=== PATIENT | female | born 1935 | race Caucasian/White ===

== ENCOUNTER → 2017-03-13 | Outpatient (CLI) | payer MEDICARE | LOC: MHCPAIN 08:25 | DX: G89.29 Other chronic pain (principal); M47.817 Spondylosis without myelopathy or radiculopathy, lumbosacral region; M53.3 Sacrococcygeal disorders, not elsewhere classified; M96.1 Postlaminectomy syndrome, not elsewhere classified | CPT/HCPCS: G0463 ==

== ENCOUNTER → 2017-05-21 | Outpatient (REF) ==
[2017-05-21 19:13] LABS: C-REACTIVE PROTEIN < 0.5 mg/dL (0.0-0.9)
[2017-05-21 19:37] LABS: THYROID STIMULATING HORMONE 0.027 uIU/mL (0.465-4.680)
== END ==
LOC: ZLAB.WCH 18:27
PROVIDERS: Internal Medicine
DX: Z01.89 Encounter for other specified special examinations (principal)

== ENCOUNTER → 2017-06-18 | Outpatient (CLI) | payer MEDICARE | LOC: COL.RAD 10:59 | DX: E05.20 Thyrotoxicosis with toxic multinodular goiter without thyrotoxic crisis or storm (principal) | CPT/HCPCS: A9516 ==

== ENCOUNTER → 2017-07-02 | Outpatient (CLI) | payer MEDICARE | LOC: COL.RAD 12:19 | DX: E05.20 Thyrotoxicosis with toxic multinodular goiter without thyrotoxic crisis or storm (principal) | CPT/HCPCS: A9517 ==

== ENCOUNTER → 2017-07-18 | Outpatient (REF) ==
[2017-07-18 18:57] LABS: THYROID STIMULATING HORMONE < 0.015 uIU/mL (0.465-4.680)
== END ==
LOC: ZLAB.WCH 18:02
PROVIDERS: Internal Medicine
DX: Z01.89 Encounter for other specified special examinations (principal)

== ENCOUNTER → 2017-08-14 | Outpatient (REF) ==
[2017-08-14 20:06] LABS: THYROID STIMULATING HORMONE < 0.015 uIU/mL (0.465-4.680)
== END ==
LOC: ZLAB.WCH 18:57
PROVIDERS: Internal Medicine
DX: Z01.89 Encounter for other specified special examinations (principal)

== ENCOUNTER → 2017-09-12 | Outpatient (REF) ==
[2017-09-12 19:19] LABS: THYROID STIMULATING HORMONE < 0.015 uIU/mL (0.465-4.680)
== END ==
LOC: ZLAB.WCH 18:13
PROVIDERS: Internal Medicine
DX: Z01.89 Encounter for other specified special examinations (principal)

== ENCOUNTER → 2017-10-11 | Outpatient (REF) ==
[2017-10-11 22:50] LABS: THYROID STIMULATING HORMONE 1.13 uIU/mL (0.465-4.680)
== END ==
LOC: ZLAB.WCH 19:15
PROVIDERS: Internal Medicine
DX: Z01.89 Encounter for other specified special examinations (principal)

== ENCOUNTER → 2017-11-12 | Outpatient (REF) ==
[2017-11-12 19:12] LABS: THYROID STIMULATING HORMONE 0.976 uIU/mL (0.465-4.680)
== END ==
LOC: ZLAB.WCH 18:06
PROVIDERS: Internal Medicine
DX: Z01.89 Encounter for other specified special examinations (principal)

== ENCOUNTER → 2017-12-11 | Outpatient (REF) ==
[2017-12-11 20:01] LABS: THYROID STIMULATING HORMONE 0.611 uIU/mL (0.465-4.680)
== END ==
LOC: ZLAB.WCH 18:56
PROVIDERS: Internal Medicine
DX: Z01.89 Encounter for other specified special examinations (principal)

== ENCOUNTER → 2018-01-06 | Outpatient (REF) ==
[2018-01-06 19:22] LABS: THYROID STIMULATING HORMONE 0.691 uIU/mL (0.465-4.680)
== END ==
LOC: ZLAB.WCH 17:54
PROVIDERS: Internal Medicine
DX: Z01.89 Encounter for other specified special examinations (principal)

== ENCOUNTER → 2018-02-05 | Outpatient (REF) ==
[2018-02-05 16:27] LABS: THYROID STIMULATING HORMONE 1.26 uIU/mL (0.465-4.680)
== END ==
LOC: ZLAB.WCH 15:40
PROVIDERS: Internal Medicine
DX: Z01.89 Encounter for other specified special examinations (principal)

== ENCOUNTER → 2018-02-22 | Outpatient (REF) ==
[2018-02-22 12:46] LABS: THYROID STIMULATING HORMONE 0.237 uIU/mL (0.465-4.680)
== END ==
LOC: ZLAB.WCH 11:35
PROVIDERS: Internal Medicine
DX: Z01.89 Encounter for other specified special examinations (principal)

== ENCOUNTER → 2018-04-07 | Outpatient (REF) ==
[2018-04-07 15:23] LABS: THYROID STIMULATING HORMONE 1.82 uIU/mL (0.465-4.680)
== END ==
LOC: ZLAB.WCH 14:35
PROVIDERS: Internal Medicine
DX: Z01.89 Encounter for other specified special examinations (principal)

== ENCOUNTER → 2018-05-07 | Outpatient (REF) ==
[2018-05-07 16:58] LABS: THYROID STIMULATING HORMONE 0.405 uIU/mL (0.465-4.680)
== END ==
LOC: ZLAB.WCH 15:58
PROVIDERS: Internal Medicine
DX: Z01.89 Encounter for other specified special examinations (principal)

== ENCOUNTER → 2018-08-02 | Outpatient (REF) ==
[2018-08-02 15:24] LABS: THYROID STIMULATING HORMONE 0.652 uIU/mL (0.465-4.680)
== END ==
LOC: ZLAB.WCH 14:06
PROVIDERS: Internal Medicine
DX: Z01.89 Encounter for other specified special examinations (principal)

== ENCOUNTER → 2018-09-02 | Outpatient (REF) ==
[2018-09-02 19:07] LABS: THYROID STIMULATING HORMONE 1.38 uIU/mL (0.465-4.680)
== END ==
LOC: ZLAB.WCH 18:27
PROVIDERS: Internal Medicine
DX: Z01.89 Encounter for other specified special examinations (principal)

== ENCOUNTER → 2018-09-22 | Outpatient (REF) ==
[2018-09-22 19:18] LABS: THYROID STIMULATING HORMONE 2.74 uIU/mL (0.465-4.680)
== END ==
LOC: ZLAB.WCH 18:30
PROVIDERS: Internal Medicine
DX: Z01.89 Encounter for other specified special examinations (principal)

== ENCOUNTER → 2018-10-27 | Outpatient (REF) ==
[2018-10-27 17:13] LABS: THYROID STIMULATING HORMONE 0.53 uIU/mL (0.465-4.680)
== END ==
LOC: ZLAB.WCH 16:27
PROVIDERS: Internal Medicine
DX: Z01.89 Encounter for other specified special examinations (principal)

== ENCOUNTER → 2018-12-15 | Outpatient (REF) ==
[2018-12-15 17:01] LABS: THYROID STIMULATING HORMONE 0.86 uIU/mL (0.465-4.680)
== END ==
LOC: ZLAB.WCH 16:16
PROVIDERS: Internal Medicine
DX: Z01.89 Encounter for other specified special examinations (principal)

== ENCOUNTER → 2019-01-19 | Outpatient (REF) ==
[2019-01-19 17:15] LABS: THYROID STIMULATING HORMONE 1.39 uIU/mL (0.465-4.680)
== END ==
LOC: ZLAB.WCH 15:59
PROVIDERS: Internal Medicine
DX: Z01.89 Encounter for other specified special examinations (principal)

== ENCOUNTER → 2019-02-20 | Outpatient (REF) ==
[2019-02-20 15:39] LABS: THYROID STIMULATING HORMONE 1.64 uIU/mL (0.465-4.680)
== END ==
LOC: ZLAB.WCH 14:49
PROVIDERS: Internal Medicine
DX: Z01.89 Encounter for other specified special examinations (principal)

== ENCOUNTER 2020-11-27 22:20 | Emergency (ER) | payer MEDICARE ==
[~2020-11-27] VITALS: Ht 172.7 cm; Wt 65.5 kg
[~2020-11-27 22:20] MED LIST: AMOXICILLIN875 MG; CEPHALEXIN500 M1 PO; CYANOCOBAL1000 MCG/1 IM; DILAUDID8 M1 PO; LAMICTAL 25MG T25 MG PO; MELATONIN3 M1 PO; MIRALAX PA17 GM/Dose PO; NEURONTIN600 MG/TAB PO; SYNTHROID 0.0.025 MG PO; ULTRAM 50MG TAB50 MG PO; XANAX 1MG1 MG PO
[2020-11-27 22:24] VITALS: TEMP 97.8
[2020-11-27 22:54] LABS: BASO % 0.4 % (0.0-2.0); EOS # 0.1 (0.0-0.7); EOS % 1.3 % (0-4.0); GRAN # 5.4 (1.4-6.5); GRAN % 68.9 % (42.2-75.2); HEMATOCRIT 39.6 % (37.0-47.0); HEMOGLOBIN 12.4 g/dl (12.5-16.0); LYMPH # 1.4 (1.2-3.4); MEAN CELL VOLUME 89 fl (80.0-100.0); MEAN CORPUSCULAR HEMOGLOBIN 28 pg (27.0-31.0); MEAN CORPUSCULAR HGB CONC 31 g/dl (33.0-37.0); MEAN PLATELET VOLUME 9.8 fl (7.4-10.4); MONO # 0.9 (0.1-0.6); PLATELET COUNT 301 K/mm3 (130-400); RED BLOOD COUNT 4.44 M/mm3 (4.10-5.30); REDCELL DISTRIBUTION WIDTH-CV 15.8 % (11.5-14.5)
[2020-11-27 23:10] LABS: ALBUMIN 4.1 gm/dL (3.5-5.0); BILIRUBIN,TOTAL 0.4 mg/dL (0.0-1.0); CALCIUM 9.9 mg/dL (8.4-10.2); CREATININE, serum 1.24 (0.52-1.25); POTASSIUM 4.4 mmol/L (3.4-5.0); TOTAL PROTEIN 7.3 gm/dL (6.4-8.2)
[2020-11-27 23:11] LABS: C-REACTIVE PROTEIN 0.5 mg/dL (0.0-0.9)
[2020-11-28] MEDS ORDERED: ULTRAM 50MG TAB50 MG PO (00:11)
[2020-11-28 00:40] VITALS: BP 138/70; PULSE 80
== END 2020-11-28 00:40 | disposition home or self-care (01) ==
LOC: COL.ER 22:20
PROVIDERS: Emergency Medicine
DX: S20.219A Contusion of unspecified front wall of thorax, initial encounter (principal); E03.9 Hypothyroidism, unspecified; G89.29 Other chronic pain; Z88.6 Allergy status to analgesic agent; Z87.891 Personal history of nicotine dependence; Z88.8 Allergy status to other drugs, medicaments and biological substances; Z79.890 Hormone replacement therapy; W19.XXXA Unspecified fall, initial encounter
CPT/HCPCS: A9284; J3010; Q9967

== ENCOUNTER 2021-04-09 03:25 | Inpatient (IN) | payer MEDICARE ==
[~2021-04-09] VITALS: Ht 165.2 cm; Wt 70.8 kg
[~2021-04-09 03:25] MED LIST changes: -SYNTHROID 0.0.025 MG PO; +SYNTHROID0.05 MG/TA PO
[2021-04-09 05:29] LABS: BASO % 0.3 % (0.0-2.0); EOS % 0.1 % (0-4.0); GRAN % 79.3 % (42.2-75.2); HEMATOCRIT 37.7 % (37.0-47.0); HEMOGLOBIN 12.2 g/dl (12.5-16.0); LYMPH # 0.9 (1.2-3.4); LYMPH % 11.4 % (20.0-51.0); MEAN CELL VOLUME 90 fl (80.0-100.0); MEAN CORPUSCULAR HEMOGLOBIN 29 pg (27.0-31.0); MEAN CORPUSCULAR HGB CONC 32 g/dl (33.0-37.0); MONO # 0.6 (0.1-0.6); MONO % 8.5 % (1.7-9.3); PLATELET COUNT 229 K/mm3 (130-400); RED BLOOD COUNT 4.18 M/mm3 (4.10-5.30)
[2021-04-09 05:36] LABS: PROTHROMBIN TIME 10.9 SECONDS (9.7-12.8)
[2021-04-09 05:40] LABS: ALBUMIN 4.2 gm/dL (3.5-5.0); BILIRUBIN,TOTAL 0.8 mg/dL (0.0-1.0); C-REACTIVE PROTEIN 2.7 mg/dL (0.0-0.9); CALCIUM 9.9 mg/dL (8.4-10.2); CREATININE, serum 1.01 (0.52-1.25); POTASSIUM 5.1 mmol/L (3.4-5.0); TOTAL PROTEIN 7.7 gm/dL (6.4-8.2)
[2021-04-09 06:03] LABS: TROPONIN-I 0.102 ng/mL (0.000-0.035)
[2021-04-09 06:51] LABS: COLLECTION METHOD CATHETER
[2021-04-09 06:56] LABS: PH 6 (5-8); SQUAMOUS EPITHELIAL None Seen /hpf; URINE APPEARANCE Clear; URINE BACTERIA None Seen /hpf; URINE BILIRUBIN Negative (NEGATIVE); URINE BLOOD Negative (NEGATIVE); URINE COLOR Yellow; URINE GLUCOSE Negative (NEGATIVE); URINE KETONE Trace (NEGATIVE); URINE LEUKOCYTE ESTERASE Negative (NEGATIVE); URINE NITRATE Negative (NEGATIVE); URINE PROTEIN(semi-quant) 1+ (NEGATIVE); URINE RBC 0-2 /hpf; URINE UROBILINOGEN Negative (NEGATIVE)
[2021-04-09 11:22] VITALS: BP 164/66; PULSE 81; TEMP 98.2
--- NOTE | 2021-04-09 12:30 | NUR ---
Pt arrived to medical unit room 355 around 1130 from ED. Oriented pt to room. IV started to right upper arm. Admission assessments completed. Pt unable to provide current med list, updated list obtained from [facility] and confirmed by pt's daughter. Pt denies needs at this time. Continuing to monitor.
[2021-04-09] MEDS ORDERED: LEXAPRO 10MG10 MG PO (13:05)
[2021-04-09] MEDS ORDERED: DILAUDID 4MG TAB4 MG PO (13:06)
[2021-04-09] MEDS ORDERED: INDERAL 20MG20 MG PO (13:11)
[2021-04-09] MEDS ORDERED: VITAMIN D2 PO (13:14)
--- NOTE | 2021-04-09 16:00 | NUR ---
Pt reporting bladder cramping and inability to urinate. Bladder scan done w/>500 mls found. notified and straight cath ordered. Attempted straight cath w/no output. Immediately following insertion, pt began urinating in bed. After sheets changed, purewick placed and pt able to urinate more. Reports relief of cramping following this.
[2021-04-09 16:52] VITALS: BP 155/73; PULSE 73; TEMP 98
--- NOTE | 2021-04-09 17:30 | NUR ---
Pt reported increase in bladder cramping again. Bladder scan done and >500 mls found again. Reattempted straight cath w/650 mls out clear jami urine. Continuing to monitor.
--- NOTE | 2021-04-09 20:00 | NUR ---
Assessment complete. Patient is alert and oriented with no complaints of pain. No edema is noted. Bilateral lower extremities have various bruises and skin tears from falls at home. Dressings are changed. Lungs are clear in upper lobes with fine crackles in the bases. Patient is tolerating breathing on RA well. Purewick is draining dark yellow urine. Comfort measures provided and call light in reach.
[2021-04-09 21:14] VITALS: BP 115/49; PULSE 66; TEMP 98.1
[2021-04-10] VITALS (10 sets, daily range): BP systolic 120–149; BP diastolic 51–75; PULSE 60–97; TEMP 97.4–98.1
[2021-04-10 07:04] LABS: BASO % 0.5 % (0.0-2.0); EOS # 0.2 (0.0-0.7); EOS % 2.8 % (0-4.0); GRAN # 3.4 (1.4-6.5); GRAN % 55.7 % (42.2-75.2); HEMOGLOBIN 10.7 g/dl (12.5-16.0); LYMPH # 1.7 (1.2-3.4); LYMPH % 27.9 % (20.0-51.0); MEAN CELL VOLUME 91 fl (80.0-100.0); MEAN CORPUSCULAR HEMOGLOBIN 30 pg (27.0-31.0); MEAN CORPUSCULAR HGB CONC 33 g/dl (33.0-37.0); MEAN PLATELET VOLUME 10.5 fl (7.4-10.4); MONO # 0.8 (0.1-0.6); MONO % 12.6 % (1.7-9.3); PLATELET COUNT 228 K/mm3 (130-400); RED BLOOD COUNT 3.63 M/mm3 (4.10-5.30); REDCELL DISTRIBUTION WIDTH-CV 13.3 % (11.5-14.5)
[2021-04-10 07:05] LABS: HEMATOCRIT 32.9 % (37.0-47.0)
[2021-04-10 07:11] LABS: CREATININE, serum 1.26 (0.52-1.25); POTASSIUM 4.1 mmol/L (3.4-5.0)
[2021-04-10 07:24] LABS: TROPONIN-I 0.044 ng/mL (0.000-0.035)
--- NOTE | 2021-04-10 09:50 | NUR ---
Shift assessment complete. Resting in bed w/eyes closed, rouses easily to verbal stimulation. NPO since midnight for Marianoiscan today. INT to right upper arm w/o s/s complication, flushes well. A&Ox4. Heart RRR. Lungs CTA. Reports pain well-controlled at this time and declines pain medication. Continuing to monitor.
--- NOTE | 2021-04-10 10:50 | NUR ---
Pt off unit for lexiscan at this time.
--- NOTE | 2021-04-10 15:51 | NUR ---
Customer Service Attendant met with patient to discuss discharge planning. Patient lives alone in [place] and sees Dr. uDke for primary care. Patient obtains medications from [facility] on [address] with no difficulties. Patient reports she has a walker, cane, electric wheelchair, and electric scooter at home. Patient states she "does alright" with ADLS. SW adressed patient's falls at home and she states she hasn't been falling often and when she does it's due to a balance issue that she's had since she's been a child. Patient states she also has issues with her foot arch, which also contributes to the issue. Patient reports she has [facility] at home. SW reviewed PT recommendation for SNF and patient states she is not interested in rehab at this time. Patient advised she plans to return home with continued services from [facility]. SW also asked patient about Advance Directives. Patient states she has never completed DPOA-HC but would like to complete it while here. SW assisted patient in completing the form and patient verbalized understanding of DPOA-HC. Patient states she wants to designate her daughter, Medina and no one else. BOY and BOY Cuenca provided witness signature. BOY provided original and copies to patient then placed copy in patient's chart. BOY then contacted patient's daughter, Medina to review discharge plan. Medina feels that patient would benefit from placement, however has promised patient that she would not force her. Medina advised she tried to talk with patient, however patient is insistant on going to a follow up appointment with a specialist in [place] on Saturday and returning home. Medina advised she has been interested in Assisted Living for patient. BOY advised Medina that this is something typically not covered by insurance. Medina inquired if patient would qualify for Medicaid so BOY consulted Seda, Financial Counselor. BOY explained to Medina that in order to qualify for SNF placement, patient would require three inpatient midnights and Medina verbalized understanding. BOY advised Medina that if patient would not agree to SNF placement, the plan is home with [facility]. BOY contacted Zara at [facility] and faxed clinical updates. Discharge Plan: Patient declined SNF placement, which is the recommendation. Plan will be Home with [facility].
--- NOTE | 2021-04-10 21:45 | NUR ---
Initial shift assessment done- has been resting the first part of the shift, states back pain 04/06--will give Dilaudid p.o as ordered at this time, Up to bathroom with assist and walker-only needs standby assist. Very pleasant, alert and oriented at this time. Tele on. Iv fluids of NS at 75cc/hr- just this one liter ordered. bed alarm on.
[2021-04-11 00:55] VITALS: BP 127/44; PULSE 70; TEMP 97.9
[2021-04-11 03:59] VITALS: BP 109/55; PULSE 59; TEMP 97.7
[2021-04-11 06:39] LABS: BASO % 0.5 % (0.0-2.0); EOS # 0.3 (0.0-0.7); GRAN # 3.2 (1.4-6.5); GRAN % 51.2 % (42.2-75.2); HEMOGLOBIN 10.1 g/dl (12.5-16.0); LYMPH # 1.9 (1.2-3.4); LYMPH % 30.7 % (20.0-51.0); MEAN CELL VOLUME 91 fl (80.0-100.0); MEAN CORPUSCULAR HEMOGLOBIN 30 pg (27.0-31.0); MEAN CORPUSCULAR HGB CONC 33 g/dl (33.0-37.0); MONO # 0.8 (0.1-0.6); MONO % 13.3 % (1.7-9.3); PLATELET COUNT 215 K/mm3 (130-400); RED BLOOD COUNT 3.38 M/mm3 (4.10-5.30); REDCELL DISTRIBUTION WIDTH-CV 13.4 % (11.5-14.5)
[2021-04-11 06:45] LABS: HEMATOCRIT 30.6 % (37.0-47.0)
[2021-04-11 06:47] LABS: CALCIUM 8.3 mg/dL (8.4-10.2); CREATININE, serum 1.04 (0.52-1.25); POTASSIUM 4.1 mmol/L (3.4-5.0)
--- NOTE | 2021-04-11 07:29 | NUR ---
CARE TAKEN OVER MIDSHIFT. CHECK ON PT WHEN CARE TAKEN ON. SHE WAS AMBULATING TO RESTROOM, ALERT AND PLESANT. NOTED THAT PT HAD HEMATOMAS/BRUSING ON BLE. VSS AND OVERALL PRESENTATION STABLE. PT RESTING IN BED AT SHIFT CHANGE AND CARE RELINQUISHED AT THIS TIME.
[2021-04-11 07:47] VITALS: BP 147/53; PULSE 66; TEMP 97.7
--- NOTE | 2021-04-11 08:10 | NUR ---
Assessment completed, see additional note. Pt is sitting up in bed, alert/orineted, able to answer questions appropriately. No complaints of pain or discomfort, no difficutly breathing. PT has substantial brusing to upper and lower extremities and numerous hematomas to BLE. Mepilex in place for open abrasions on lower extremities, dressings clean/dry/intact. PT reports no events overnight. Assistance with breakfast tray provided, sitting up eating breakfast and tolerating well. Bed in low position, call strickland in reach, bed alarm set.
[2021-04-11] MEDS ORDERED: ULTRAM 50MG TAB50 MG PO (08:51)
--- NOTE | 2021-04-11 14:37 | NUR ---
Avionics Repair Technician attended clinical rounds with the team and patient to discharge home today. Hospitalist again discussed SNF and patient declined. SW contacted patient's daughter, Medina and left a message. SW contacted [facility] and faxed discharge orders/summary. SW made a referral to Adult Protective Services (intake #[id number]). Discharge Plan: Home with [facility]
== END 2021-04-11 11:51 | disposition home or self-care (01) | DRG 551 ==
LOC: COL.ER 03:25 → MEDICAL 08:58
PROVIDERS: Emergency Medicine; Physician Assistant; ADMIT Internal Medicine
DX: S22.089A Unspecified fracture of T11-T12 vertebra, initial encounter for closed fracture (principal); I21.A1 Myocardial infarction type 2; E03.9 Hypothyroidism, unspecified; N28.9 Disorder of kidney and ureter, unspecified; G47.00 Insomnia, unspecified; I10 Essential (primary) hypertension; D64.9 Anemia, unspecified; R53.81 Other malaise; W18.30XA Fall on same level, unspecified, initial encounter; R79.89 Other specified abnormal findings of blood chemistry; R25.1 Tremor, unspecified; Z66 Do not resuscitate; Z90.710 Acquired absence of both cervix and uterus; Z90.89 Acquired absence of other organs; Z90.49 Acquired absence of other specified parts of digestive tract; Z87.891 Personal history of nicotine dependence
CPT/HCPCS: 99222-AI; 99232-AI; 99239; A9500; J1650; J2270; J2785; J7030

== ENCOUNTER 2022-07-06 13:44 | Day surgery (SDC) | payer MEDICARE ==
[~2022-07-06] VITALS: Ht 172.7 cm; Wt 60.5 kg
[~2022-07-06 13:44] MED LIST changes: +DILAUDID 4MG TAB4 MG PO; +INDERAL 20MG20 MG PO; +LEXAPRO 10MG10 MG PO; +VITAMIN D PO
[2022-07-06] MEDS ORDERED: ZOLOFT 25MG25 MG PO (14:28)
[2022-07-06] MEDS ORDERED: MYSOLINE 5050 MG/TAB PO (14:29)
[2022-07-06] MEDS ORDERED: PRIL40 PO (14:30)
[2022-07-06] MEDS ORDERED: XANAX 1MG1 MG PO (14:30)
[2022-07-06] MEDS ORDERED: DILAUDID 4MG TAB4 MG PO (14:31)
[2022-07-06] MEDS ORDERED: ZOFRAN ODT8 MG PO (14:32)
[2022-07-06] MEDS ORDERED: D3-5050000 IU PO (14:35)
[2022-07-06 15:00] VITALS: BP 171/58; PULSE 48; TEMP 97.5
[2022-07-06 16:15] VITALS: BP 180/74; PULSE 58; TEMP 97.6
[2022-07-06 16:30] VITALS: PULSE 51
--- NOTE | 2022-07-06 16:59 | NUR ---
VSS-pt unable to tolerate BP cuff. Tolerated pudding and juice. Denies n/v or other complaints. IV removed and pressure dressing applied. Pt dressed with assistance of daughter Medina. Discharge teaching completed, both verbalized understanding. Dr Knox in to visit post procedure.
--- NOTE | 2022-07-06 17:16 | NUR ---
Pt taken via wheelchair to private vehicle for dc home with daughter driving.
== END 2022-07-06 17:17 | disposition home or self-care (01) ==
LOC: SDCO 13:44
DX: Z98.0 Intestinal bypass and anastomosis status (principal); D12.8 Benign neoplasm of rectum; D12.5 Benign neoplasm of sigmoid colon; K62.1 Rectal polyp; K63.5 Polyp of colon; R10.13 Epigastric pain; R11.0 Nausea; K27.9 Peptic ulcer, site unspecified, unspecified as acute or chronic, without hemorrhage or perforation; Z87.891 Personal history of nicotine dependence; Z80.0 Family history of malignant neoplasm of digestive organs; Z28.310 Unvaccinated for COVID-19
CPT/HCPCS: J2704; J7030